=== PATIENT | female | born 1965 | race African-American/Black ===

== ENCOUNTER 2024-12-02 02:59 | Inpatient (IN) | payer BC, OTHER ==
[2024-12-02] VITALS (17 sets, daily range): BP systolic 121–151; BP diastolic 64–97; PULSE 75–103; RESP 13–34; TEMP 36.5–36.7; O2SAT 91–100
[~2024-12-02] VITALS: Ht 160 cm; Wt 90.7 kg
[2024-12-02] MEDS: ALBUTEROL (0.083%) 2.5MG/3ML NEB HHN STA (03:02)
[2024-12-02] MEDS: IPRATROPIUM BROMIDE (0.02%) 0.5MG/2.5ML NEB HHN STA (03:02)
[2024-12-02 03:30] LABS: BASOPHILS % 0.7 % (0.0-2.0); EOSINOPHILS % 2.4 % (0.0-5.0); HEMATOCRIT. 35.9 % (36.0-48.0); HEMOGLOBIN. 11.6 g/dL (12.0-16.0); MEAN CORPUSCULAR HEMOGLOBIN 28.5 pg (28.0-32.0); MEAN CORPUSCULAR HGB CONC 32.2 g/dL (31.0-37.0); MEAN CORPUSCULAR VOLUME 88.5 fL (81.0-99.0); MEAN PLATELET VOLUME 7.2 fl (7.4-10.4); MONOCYTES % 5.3 % (2.0-8.0); NEUTROPHILS % 42.6 % (40.0-76.0); PLATELET 314 x1000/uL (130-400); RED BLOOD CELL COUNT 4.06 mill/uL (4.2-5.4); RED CELL DISTRIBUTION WIDTH 15.7 % (11.6-14.6); WHITE BLOOD COUNT 14.6 x1000/uL (4.5-11.0)
[2024-12-02] MEDS: MAGNESIUM 2 G PREMIX 50 ML IV ONE (03:32)
[2024-12-02] MEDS: ONDANSETRON HCL 4MG/2ML INJ IV ONE ×2 (03:32→05:35)
[2024-12-02] MEDS: METHYLPREDNISOLONE SOD SUCC 125MG/2ML (ACT-O-VIAL) IV STA (03:32)
[2024-12-02] MEDS: SODIUM CHLORIDE 0.9% 1,000 ML IV ONE (03:32)
[2024-12-02 03:39] LABS: CARBON DIOXIDE 25 mEq/L (21-32); CHLORIDE 106 mEq/L (98-107); POTASSIUM 3.2 mEq/L (3.5-5.1); SODIUM 140 mEq/L (136-145)
[2024-12-02 03:44] LABS: CREATININE 0.8 mg/dL (0.6-1.0)
[2024-12-02 03:45] LABS: ETHANOL BLOOD < 10 mg/dL (<10); GLUCOSE 174 mg/dL (70-105); UREA NITROGEN BLOOD 9 mg/dL (9-23)
[2024-12-02 03:47] LABS: PARTIAL THROMBOPLASTIN TIME 21.8 sec (23.4-31.0); PROTHROMBIN TIME 10.4 sec (9.6-11.0)
[2024-12-02 04:06] LABS: TROPONIN I HIGH SENSITIVITY < 4 ng/L (3.0-34)
[2024-12-02 04:21] LABS: *AMPHETAMINES SCREEN URINE NEGATIVE (NEGATIVE); *BARBITURATES SCREEN URINE NEGATIVE (NEGATIVE); *BENZODIAZEPINES SCREEN URINE NEGATIVE (NEGATIVE); *COCAINE SCREEN URINE NEGATIVE (NEGATIVE); METHADONE URINE SCREEN NEGATIVE (NEGATIVE); OPIATES URINE SCREEN NEGATIVE (NEGATIVE); PHENCYCLIDINE URINE SCREEN NEGATIVE (NEGATIVE)
[2024-12-02 04:22] LABS: CANNABINOID URINE SCREEN PRESUMPTIVE POSITIVE (NEGATIVE); ECSTASY MDMA SCREEN URINE NEGATIVE (NEGATIVE)
[2024-12-02] MEDS ORDERED: ACETAMINOPHEN 325MG TABLET PO PRN ×2 (05:15)
[2024-12-02] MEDS ORDERED: CLONIDINE 0.1MG TABLET PO PRN (05:15)
[2024-12-02] MEDS ORDERED: ONDANSETRON HCL 4MG/2ML INJ IV PRN (05:15)
[2024-12-02] MEDS ORDERED: DOCUSATE SODIUM 100MG CAPSULE PO PRN (05:15)
[2024-12-02] MEDS ORDERED: IPRATROPIUM/ALBUTEROL 0.5-3(2.5)MG/3ML NEB HHN PRN (05:15)
[2024-12-02] MEDS: MORPHINE SULFATE 4 MG/ML INJ (FOR IV/IM USE) IV ONE (05:35)
[2024-12-02] MEDS ORDERED: DEXTROSE 50% WATER 50ML SYRINGE IV PRN (05:45)
[2024-12-02] MEDS ORDERED: NON FORMULARY MED XX SCH (05:45)
[2024-12-02] MEDS: MAGNESIUM/ALUMINUM HYDROXIDE/SIMETHICONE 30ML UDC PO PRN (05:55)
[2024-12-02] MEDS: SODIUM CHLORIDE 0.9% 1,000 ML IV SCH (05:55)
[2024-12-02] MEDS: AMLODIPINE 5MG TABLET PO SCH (05:55)
[2024-12-02] MEDS: POTASSIUM CHLORIDE 20MEQ TABLET SR PO NR (05:56)
[2024-12-02] MEDS: PANTOPRAZOLE SODIUM 40 MG/VIAL IV SCH (05:56)
[2024-12-02 07:08] LABS: CREATINE KINASE MB FRACTION 0.7 ng/mL (0.5-3.6)
[2024-12-02 07:09] LABS: CREATINE KINASE 118 IU/L (34-145); PHOSPHORUS 1.6 mg/dL (2.5-4.9)
[2024-12-02 07:16] LABS: TROPONIN I HIGH SENSITIVITY < 4 ng/L (3.0-34)
[2024-12-02] MEDS: IPRATROPIUM/ALBUTEROL 0.5-3(2.5)MG/3ML NEB HHN SCH (07:42)
[2024-12-02] MEDS: INSULIN LISPRO 100 UNITS/ML SUBCUT SCH (08:20)
[2024-12-02] MEDS: BLOOD SUGAR DIAGNOSTIC STRIP TEST SCH (08:55)
[2024-12-02] MEDS: PREDNISONE 20MG TABLET PO SCH (09:07)
[2024-12-02] MEDS: LORATADINE 10MG TABLET PO SCH (09:08)
[2024-12-02] MEDS: LOSARTAN 100 MG TABLET PO SCH (09:08)
[2024-12-02] MEDS: ENOXAPARIN 30MG/0.3ML SYR SUBCUT SCH (09:08)
[2024-12-02 09:24] LABS: BG BASE EXCESS -0.1 mmol/L (-2.0-3.0); BG CARBOXYHEMOGLOBIN 0.3 % (0.5-1.5); BG DEOXYHEMOGLOBIN 4.2 % (0.0-5.0); BG FRACTION INSPIRED OXYGEN 100; BG HCO3 ACT 25.2 mmol/L (21.0-28.0); BG METHEMOGLOBIN 0.3 % (0.5-1.5); BG OXYGEN SATURATION 95.8 % (94.0-98.0); BG OXYHEMOGLOBIN 95.2 % (94.0-98.0); BG PCO2 43.6 mmHg (32.0-45.0); BG PH 7.379 (7.350-7.450); BG PO2 77.3 mmHg (83.0-108.0); BG SAMPLE SITE RIGHT RADIAL; BG TOTAL HEMOGLOBIN 12.3 g/dL (12.0-16.0); BG VENT MODE HIGH FLOW
[2024-12-02] MEDS: POTASSIUM PHOSPHATE 15 MMOL in DEXT 5% WATER 245 ML IV SCH (09:25)
[2024-12-02] MEDS: METHYLPREDNISOLONE SOD SUCC 40MG/ML (ACT-O-VIAL) IV SCH (10:54)
[2024-12-02] MEDS ORDERED: ALBU4TAB6 MT (14:28)
[2024-12-02] MEDS ORDERED: METF-416 MT (14:28)
[2024-12-02] MEDS ORDERED: BUDE6.9H INH (14:28)
[2024-12-02] MEDS ORDERED: ATOR10TA69 MT (14:28)
[2024-12-02] MEDS ORDERED: AMLO2.5T45 MT (14:28)
[2024-12-02] MEDS ORDERED: OLME20TA68 MT (14:28)
[2024-12-02 17:46] LABS: CREATINE KINASE MB FRACTION 0.8 ng/mL (0.5-3.6)
[2024-12-02 17:48] LABS: CREATINE KINASE 110 IU/L (34-145)
[2024-12-02 17:49] LABS: TROPONIN I HIGH SENSITIVITY < 4 ng/L (3.0-34)
[2024-12-02] MEDS: MONTELUKAST SODIUM 10MG TABLET PO SCH (19:44)
[2024-12-02] MEDS: ATORVASTATIN CALCIUM 40MG TABLET PO SCH (20:53)
[2024-12-03] VITALS (14 sets, daily range): BP systolic 112–129; BP diastolic 72–88; PULSE 66–93; RESP 12–19; TEMP 36.4–36.8; O2SAT 86–99
[2024-12-03 07:54] LABS: HEMATOCRIT. 34.1 % (36.0-48.0); HEMOGLOBIN. 10.8 g/dL (12.0-16.0); MEAN CORPUSCULAR HGB CONC 31.7 g/dL (31.0-37.0); MEAN CORPUSCULAR VOLUME 88.5 fL (81.0-99.0); MEAN PLATELET VOLUME 7.3 fl (7.4-10.4); PLATELET 291 x1000/uL (130-400); RED BLOOD CELL COUNT 3.85 mill/uL (4.2-5.4); RED CELL DISTRIBUTION WIDTH 15.9 % (11.6-14.6); WHITE BLOOD COUNT 21.3 x1000/uL (4.5-11.0)
[2024-12-03 08:00] LABS: CHLORIDE 106 mEq/L (98-107); POTASSIUM 4.5 mEq/L (3.5-5.1); SODIUM 139 mEq/L (136-145)
[2024-12-03 08:01] LABS: CARBON DIOXIDE 24 mEq/L (21-32)
[2024-12-03 08:02] LABS: CALCIUM 9.1 mg/dL (8.7-10.4)
[2024-12-03 08:06] LABS: CREATININE 0.6 mg/dL (0.6-1.0); GLUCOSE 148 mg/dL (70-105); TRIGLYCERIDE 44 mg/dL (0-150); UREA NITROGEN BLOOD 13 mg/dL (9-23)
[2024-12-03 08:07] LABS: LDL CHOLESTEROL 63 mg/dL (5-100); T4 FREE 0.98 ng/dL (0.89-1.76); THYROID STIMULATING HORMONE 0.18 uIU/mL (0.55-4.78)
[2024-12-03 08:08] LABS: CHOLESTEROL 150 mg/dL (<200); HDL CHOLESTEROL 67 mg/dL (>65)
[2024-12-03 08:29] LABS: BG BASE EXCESS -0.3 mmol/L (-2.0-3.0); BG CARBOXYHEMOGLOBIN 0.3 % (0.5-1.5); BG DEOXYHEMOGLOBIN 3.1 % (0.0-5.0); BG FRACTION INSPIRED OXYGEN 40; BG HCO3 ACT 25.2 mmol/L (21.0-28.0); BG METHEMOGLOBIN 0.3 % (0.5-1.5); BG OXYGEN SATURATION 96.9 % (94.0-98.0); BG OXYHEMOGLOBIN 96.3 % (94.0-98.0); BG PCO2 44.6 mmHg (32.0-45.0); BG PO2 86.4 mmHg (83.0-108.0); BG SAMPLE SITE RIGHT RADIAL; BG TOTAL HEMOGLOBIN 11.4 g/dL (12.0-16.0); BG VENT MODE MASK - BIPAP
[2024-12-03 09:21] LABS: DIFFERENTIAL COMMENT 1
[2024-12-03 13:08] LABS: PLATELET ESTIMATE NORMAL
[2024-12-03 15:27] LABS: CLARITY URINE CLEAR (CLEAR); COLOR URINE YELLOW (YELLOW); GLUCOSE URINE NEGATIVE (NEGATIVE); KETONES URINE NEGATIVE (NEGATIVE); LEUKOCYTE ESTERASE URINE NEGATIVE (NEGATIVE); NITRITE URINE NEGATIVE (NEGATIVE); OCCULT BLOOD URINE NEGATIVE (NEGATIVE); PROTEIN URINE NEGATIVE (NEGATIVE); SPECIFIC GRAVITY URINE 1.019 (1.005-1.030); UROBILINOGEN URINE 0.2 E.U./dL (0.2-1.0)
[2024-12-03] MEDS ORDERED: P20 MT (15:45)
[2024-12-03] MEDS ORDERED: MONT-46 PO (15:45)
[2024-12-03] MEDS ORDERED: CLAR10 PO (15:45)
[2024-12-03] MEDS ORDERED: METHYLPREDNISOLONE SOD SUCC 40MG/ML (ACT-O-VIAL) IV SCH (21:00)
== END 2024-12-03 18:00 | disposition home or self-care (01) | DRG 189 ==
LOC: ER 02:59 → 5EST 04:22 → EDBEDREQSVC 10:20
PROVIDERS: ADMIT Hospitalist; ATTEND Hospitalist
PROC: 5A09357 Assistance with Respiratory Ventilation, Less than 24 Consecutive Hours, Continuous Positive Airway Pressure (ICD-10-PCS; principal; 2024-12-02)
PROC: 5A0935A Assistance with Respiratory Ventilation, Less than 24 Consecutive Hours, High Flow/Velocity Cannula (ICD-10-PCS; 2024-12-02)
PROC: 5A09357 Assistance with Respiratory Ventilation, Less than 24 Consecutive Hours, Continuous Positive Airway Pressure (ICD-10-PCS; 2024-12-03)
DX: J96.01 Acute respiratory failure with hypoxia (principal); J45.901 Unspecified asthma with (acute) exacerbation; E78.5 Hyperlipidemia, unspecified; E87.6 Hypokalemia; E66.812 Obesity, class 2; D72.829 Elevated white blood cell count, unspecified; E11.65 Type 2 diabetes mellitus with hyperglycemia; I10 Essential (primary) hypertension; Z79.84 Long term (current) use of oral hypoglycemic drugs; Z88.0 Allergy status to penicillin; Z79.899 Other long term (current) drug therapy; Z87.891 Personal history of nicotine dependence; Z68.36 Body mass index [BMI] 36.0-36.9, adult
CPT/HCPCS: 36415; 36600; 71045; 80048; 80061; 80305; 80320; 81003; 82375; 82550; 82553; 82805; 82962; 83036; 83605; 83735; 83880; 84100; 84145; 84439; 84443; 84481; 84484; 85025; 85379; 93005; 93970; 94070; 94640; 94660; 94664; 98960; 99285; J1650; J1815; J2405; J2470; J2919; J2920; J3475; J3490; J7030; J7060; J7512; G0480